=== PATIENT | female | born 1990 | race Caucasian/White ===

== ENCOUNTER 2017-02-02 20:55 | Emergency (ER) | payer OTHER ==
[~2017-02-02] VITALS: Ht 152.4 cm; Wt 117.9 kg
[2017-02-02 21:36] VITALS: BP 127/72
--- NOTE | 2017-02-02 21:36 | NUR ---
TO LOBBY AMB, VS,STABLE , A/W FOR BED, GERMANIA NOTED
--- NOTE | 2017-02-03 00:55 | NUR ---
Patient ambulated to bed 12. RN evaluating patient at bedside.
--- NOTE | 2017-02-03 00:55 | NUR ---
To bed 12.
--- NOTE | 2017-02-03 02:45 | NUR ---
26Y/F PRESENTS TO ER C/O RT SIDE PAIN. NKA, PMH ASTHMA. PT STATES SHE HAD A "COUGH ATTACK" AT WORK AFTER EATING AND 1X VOMIT ON SUNDAY WHEN PAIN BEGAN. PT WAS SEEN EARLIER IN URGENT CARE, AND REFERRED TO ER TO R/O "GALL STONES" OR "PANCREATITIS". PAIN IS 9/10 ON MOVEMENT, SHARP, RADIATING TO BACK AND RT SIDE. RR EVEN AD UNLABORED, BL BREATH SOUNDS CLEAR THROUGHOUT. PT SITTING IN BED, POSITIONED FOR COMFORT.
[2017-02-03 04:08] VITALS: BP 126/70
--- NOTE | 2017-02-03 04:09 | NUR ---
Patient discharged with v/s stable. Written and verbal after care instructions given and explained. Patient alert, oriented and verbalized understanding of instructions. Ambulatory with steady gait. All questions addressed prior to discharge. ID band removed. Patient advised to follow up with PMD. Rx of IBUPROFEN 80MG, CIPRO 500MG, FLEXERIL given. Patient educated on indication of medication including possible reaction and side effects. Opportunity to ask questions provided and answered.
== END 2017-02-03 04:09 | disposition home or self-care (01) ==
LOC: MED 22:55
DX: R10.9 Unspecified abdominal pain (principal); F17.210 Nicotine dependence, cigarettes, uncomplicated; J45.909 Unspecified asthma, uncomplicated
CPT/HCPCS: 81002; 81025; 99283